=== PATIENT | female | born 1950 | race Caucasian/White ===

== ENCOUNTER 2024-02-27 12:42 | Emergency (ER) | payer OTHER, MEDICARE ==
[2024-02-27 12:55] VITALS: PULSE 43; RESP 20; TEMP 97.7
[2024-02-27 13:03] VITALS: BP 170/90
[2024-02-27 14:39] LABS: BASO % 0.4 % (0-2.0); EOS % 0.4 % (0-4.5); HEMATOCRIT 42.2 % (32.4-45.2); HEMOGLOBIN 14.3 GM/dL (10.7-15.3); LYMPH % 32.9 % (8-40); MCH 31.2 pg (25.7-33.7); MCHC 33.9 g/dl (32.0-36.0); MEAN PLT VOLUME 9.4 fl (7.5-11.1); MONO % 5.7 % (3.8-10.2); NEUT % 60.6 % (42.8-82.8); PLATELET COUNT 169 10^3/uL (134-434); RBC 4.58 M/mm3 (3.60-5.2); RDW 14.4 % (11.6-15.6); WHITE BLOOD COUNT 6.9 K/mm3 (4.0-10.0)
[2024-02-27 14:46] LABS: INR 1.02 (0.83-1.09); PROTHROMBIN TIME (PATIENT) 11.7 SEC (9.7-13.0)
[2024-02-27] MEDS ORDERED: ACETAMINOPHEN INJECTION 100 ML ONE (14:53)
[2024-02-27] MEDS ORDERED: FAMOTIDINE 20 MG/50 ML IVPB 20 MG/50 ML MG IVPB ONE (14:53)
[2024-02-27 14:56] LABS: POTASSIUM 4.1 mmol/L (3.5-5.1)
[2024-02-27 14:59] LABS: ALBUMIN 3.8 g/dl (3.4-5.0); CALCIUM 9.3 mg/dL (8.5-10.1)
[2024-02-27] MEDS: ACETAMINOPHEN 1000 MG/100 ML BAG IVPB ONE (14:59)
[2024-02-27 15:00] LABS: BLOOD UREA NITROGEN 16.5 mg/dL (7-18)
[2024-02-27 15:03] LABS: BILIRUBIN,TOTAL 0.6 mg/dL (0.2-1); CREATININE 0.9 mg/dL (0.55-1.3)
[2024-02-27 15:04] LABS: TOT PROT 7.7 g/dl (6.4-8.2)
[2024-02-27] MEDS: FAMOTIDINE 20 MG/50 ML IVPB 20 MG/50 ML MG IVPB ONE (15:36)
== END 2024-02-27 16:13 | disposition home or self-care (01) ==
LOC: JER 12:42
PROC: 3E033GC Introduction of Other Therapeutic Substance into Peripheral Vein, Percutaneous Approach (ICD-10-PCS; principal; 2024-02-27)
PROC: 3E033GC Introduction of Other Therapeutic Substance into Peripheral Vein, Percutaneous Approach (ICD-10-PCS; 2024-02-27)
DX: M25.562 Pain in left knee (principal)
CPT/HCPCS: 36415; 73562-TC-LT-FY; 80053; 84484; 85025; 85610; 85730; 86850; 86900; 86901; 93005; 93010; 96365; 96375; 99285-25; J0131